=== PATIENT | female | born 1950 | race Caucasian/White ===

== ENCOUNTER 2017-10-25 10:06 | Outpatient (CLI) | payer MEDICARE | END 2017-10-25 10:07 | disposition home or self-care (01) | LOC: BICMAMMO 10:06 | PROVIDERS: ATTEND Family Medicine | DX: Z12.31 Encounter for screening mammogram for malignant neoplasm of breast (principal) | CPT/HCPCS: 77063 ==

== ENCOUNTER 2018-10-30 10:17 | Outpatient (CLI) | payer MEDICARE | END 2018-10-30 10:18 | disposition home or self-care (01) | LOC: BICMAMMO 10:17 | PROVIDERS: ATTEND Family Medicine | DX: Z12.31 Encounter for screening mammogram for malignant neoplasm of breast (principal); R92.1 Mammographic calcification found on diagnostic imaging of breast | CPT/HCPCS: 77063; 77067 ==

== ENCOUNTER 2018-11-04 09:22 | Outpatient (CLI) | payer MEDICARE, OTHER ==
--- NOTE | 2018-11-04 11:19 | RAD ---
LUMBAR SPINE FOUR VIEWS: History: Low back pain. Comparison: 03-22-17 FINDINGS: Five lumbar type vertebrae. Lumbar vertebrae maintain height. There is a grade I anterolisthesis of L 4-5 which appears stable from the prior exam. This does not appear to significantly change with flexi on or extension. There is mild loss of disc space at L4-5 and L5-S1 which appears stable. There is facet hypertrophy. Minimal osteophytes from the lumbar vertebrae. More prominent osteophytes in the lower thoracic verte brae. IMPRESSION: Mild degenerative changes of the lumbar spine as described. Anterolisthesis of L4-5 again noted. POS: [facility]
--- NOTE | 2018-11-04 12:20 | MRI ---
MRI LUMBAR SPINE WITHOUT CONTRAST: Date: 11/04/18 INDICATION: Lumbar radiculopathy with chronic low back pain, worsening. Patient is also having radiating pain rhett n both legs into heels, but worse on the left. COMPARISON: Prior MRI of the lumbar spine dated 04/11/17. FINDINGS: The visualized retroperitoneum and paravertebral soft tissues appear within normal limits. Grade I an terolisthesis of L4 on L5 is stable. At L5-S1, there is severe left and moderate right facet joint degenerative change, which is stable. T here is a mild broad based bulge. There is no appreciable central canal or neural foraminal narrowing . At L4-5, there is advanced facet joint degenerative change, broad based disc bulge, and Grade I anter olisthesis inducing moderate to severe central canal narrowing which has progressed from the prior ex amination. Loss of disc space height in addition to the listhesis causes mild neural foraminal encroa chment without definite impingement. At L3-4, there is a broad based bulge with moderate facet joint degenerative change inducing mild justin tral canal narrowing, which is stable. There is mild neural foraminal encroachment that is greater on the right, which is stable. At L2-3, there is a mild broad based disc bulge with mild facet joint degenerative change, but no shelly reciable central canal or neural foraminal narrowing. At L1-2, there is a new central cephalad extending disc extrusion measuring 1.6 x 2.0 cm in its great est mediolateral and craniocaudad dimensions respectively. This causes mild effacement of the ventral subarachnoid space without definite conus impingement. No definite nerve root impingement is evident . No neural foraminal narrowing is evident. At T12-L1, there is a mild broad based bulge and mild facet joint degenerative change with no appreci able central canal or neural foraminal narrowing. At T11-T12, there is mild facet joint degenerative change and broad based bulge without appreciable c entral canal or neural foraminal narrowing. At T10-T11, there is a mild broad based bulge causing mild effacement of the subarachnoid space witho ut definite cord compression. No neural foraminal narrowing is evident. IMPRESSION: 1. Worsening moderate to severe central canal narrowing at L4-5. Stable mild bilateral neural forami nal narrowing. 2. Stable bilateral neural foraminal narrowing at L3-4. 3. Interval development of a central cephalad extending disc extrusion causing mild ventral effaceme nt of the subarachnoid space without evidence of conus or nerve root contact. POS: [facility]
== END 2018-11-04 09:23 | disposition home or self-care (01) ==
LOC: TBSIIMAG 09:22
PROVIDERS: ATTEND Surgery
DX: M47.26 Other spondylosis with radiculopathy, lumbar region (principal); M43.16 Spondylolisthesis, lumbar region
CPT/HCPCS: 72120; 72148

== ENCOUNTER 2019-01-14 07:19 | Outpatient (CLI) | payer MEDICARE, BC ==
[2019-01-14 11:52] LABS: Mean Corpuscular HGB CONC 32.8 g/dL (32.0-36.0); Mean Corpuscular Hemoglobin 30.6 pg (27.0-31.0); Mean Corpuscular Volume 93.3 fL (78.0-98.0); Mean Platelet Volume 7.7 fL (7.4-10.4); Platelet Count 292 thou/uL (130-400); RBC Distribution Width 11.7 % (11.5-14.5); Red Blood Cell (RBC) Count 4.57 mill/uL (4.20-5.40)
[2019-01-14 11:59] LABS: PTT 29.4 SEC (22.9-36.1)
[2019-01-14 12:23] LABS: Anion Gap 13 mmol/L (10-20); BUN (Urea Nitrogen) 39 mg/dL (9.8-20.1); Calc. Creatinine Clearance 0 mL/min (70-130); Calcium 10.6 mg/dL (7.8-10.44); Carbon Dioxide 28 mmol/L (23-31); Chloride 105 mmol/L (98-107); Estimated GFR-MDRD 71; Glucose 80 mg/dL (80-115); Potassium 3.8 mmol/L (3.5-5.1); Sodium 142 mmol/L (136-145)
== END 2019-01-14 07:20 | disposition home or self-care (01) ==
LOC: LABBT 07:19
PROVIDERS: ATTEND Surgery
DX: Z01.818 Encounter for other preprocedural examination (principal); M54.16 Radiculopathy, lumbar region; M48.061 Spinal stenosis, lumbar region without neurogenic claudication
CPT/HCPCS: 80048; 85027; 85610; 85730; 93005; 93010

== ENCOUNTER → 2019-01-21 | Day surgery (SDC) | payer MEDICARE, BC ==
[~2019-01-21] MED LIST: Bacitracin Zinc Ointment 30 gm TUBE ONE; Bisacodyl 10 MG SUPP PR PRN; Dexamethasone 20 MG/5 ML VIAL ONE; Fentanyl 100 MCG/2 ML VIAL ONE; Fleet Enema 133 ML BOT PR PRN; Glycopyrrolate 0.2 MG/ML 5 ML SYRINGE ONE; HYDROcodone/Acetaminophen 7.5/325 mg Tablet PO PRN; Ketamine 50 MG/ML (10ML VIAL) ONE; Ketorolac Tromethamine 30 MG/ML VIAL IVP PRN; Ketorolac Tromethamine 30 MG/ML VIAL IVP SCH; Lidocaine 1% PF 5 ML VIAL ONE; Mag-Al 1200 mg/1200 mg/30 ML UDCUP PO PRN; Midazolam HCl 2 mg/2 ml Vial ONE; Milk Of Magnesia 30 ML UDCUP PO PRN; Morphine 2 MG/ML SYRINGE ONE; Morphine 2 MG/ML SYRINGE SLOW IVP PRN; Morphine 4 MG/ML VIAL ONE; Morphine 4 MG/ML VIAL SLOW IVP PRN; Ondansetron HCl/PF 4 MG/2 ML Vial IVP PRN; Ondansetron PF 4 MG/2 ML Vial ONE; PACU-Morphine 4MG/ML VIAL SLOW IVP PRN; PHENYLEPHRINE-NS 100 MCG/ML 10 ML SYRINGE ONE; PROPOFOL 200 MG/20 ML VIAL ONE; Promethazine HCl 25 MG/ML VIAL IM PRN; Promethazine HCl 25 MG/ML VIAL ONE; Promethazine HCl 25 MG/ML VIAL SLOW IVP PRN; Rocuronium Bromide 10 MG/ML (10ML VIAL) ONE; Sodium Chloride 0.9% 10 ML ONE; Thrombin 5000 UNITS/5 ML VIAL ONE; ePHEDrine 50 MG/ML VIAL ONE
[2019-01-21 17:08] VITALS: BMI 25.3
[2019-01-21] MEDS: diphenhydrAMINE 25 MG CAP PO PRN (17:25)
[2019-01-21] MEDS: CEFAZOLIN 2 GM in Premix Bag 1 BAG IVPB SCH (17:25)
[2019-01-21] MEDS: Sodium Chloride 0.9% 1,000 ML IV SCH (17:25)
[2019-01-21] MEDS: tiZANidine HCl 4 MG TAB PO PRN (18:42)
[2019-01-21] MEDS: Acetaminophen 325 MG TAB PO PRN (22:11)
[2019-01-21] MEDS: traMADol HCl 50 MG TAB PO PRN (22:11)
[2019-01-21] MEDS: Ondansetron PF 4 MG/2 ML Vial IVP PRN (22:45)
[2019-01-22] MEDS: Acetaminophen/Codeine 30-300mg Tablet PO PRN ×3 (01:27→09:06)
[2019-01-22] MEDS: tiZANidine HCl 4 MG TAB PO PRN ×3 (01:27→21:04)
[2019-01-22] MEDS: CEFAZOLIN 2 GM in Premix Bag 1 BAG IVPB SCH (01:28)
[2019-01-22] MEDS: Sodium Chloride 0.9% 1,000 ML IV SCH ×2 (05:45→15:27)
[2019-01-22] MEDS: Losartan 25 MG TAB PO SCH (08:23)
[2019-01-22] MEDS: Multivit, Therapeutic 1 TAB PO SCH (08:23)
[2019-01-22] MEDS: Chlorthalidone 25 MG TAB PO SCH (08:23)
--- NOTE | 2019-01-22 09:21 | PRG ---
DATE OF SERVICE: 01/22/2019 SUBJECTIVE: Ms. Morrow is postoperative day #1 from L3-S1 laminectomy. She has had resolution in her leg pain. She has significant incisional pain. We will work on control in that regard. Anticipate dismissal perhaps later today or maybe even one more day to get her pain under control. Job ID: [id number]
--- NOTE | 2019-01-22 09:33 | OP ---
DATE OF PROCEDURE: 01/21/2019 ASSISTANT DIRECTOR OF ADMISSIONS: Ammon Hernandez PA-C. PREPROCEDURE DIAGNOSIS: Lumbar stenosis with low back and leg pain. POSTPROCEDURE DIAGNOSIS: Lumbar stenosis with low back and leg pain. PROCEDURES PERFORMED: L3-L4, L4-L5, and L5-S1 laminectomies, partial facetectomies, and foraminotomies. DESCRIPTION OF PROCEDURE: After informed consent was obtained from the patient, the patient was brought to the OR. Proper patient, pause, and identification were carried out. She was placed under excellent general endotracheal anesthesia and positioned prone on the OR table. All appropriate points were padded. We identified the midline lynne, and this was made over the L3-S1 segments and the dorsal back or over the back and this area was sterilely cleansed, prepared, and draped. Proper patient, pause, and identification were again carried out. The wound was then opened with a combination of sharp, monopolar, and blunt dissection, and the L3, L4, L5, and S1 dorsal spines and lamina were exposed. Localization film confirmed area of interest. We then performed L3, L4, L5, and S1 laminectomies, partial facetectomies, and foraminotomies with excellent decompression of the common dural tube and nerve roots. Copious irrigation occurred throughout as did maximizing hemostasis. The wound was then closed in anatomic layers following sprinkling of vancomycin powder and maximizing hemostasis. The patient was then emerged from anesthesia. Job ID: [id number]
[2019-01-22] MEDS: Ondansetron PF 4 MG/2 ML Vial IVP PRN (11:55)
[2019-01-22] MEDS: Acetaminophen 325 MG TAB PO PRN (15:25)
[2019-01-22] MEDS: diphenhydrAMINE 25 MG CAP PO PRN (18:27)
[2019-01-22] MEDS: traMADol HCl 50 MG TAB PO PRN (21:03)
[2019-01-23] MEDS: Sodium Chloride 0.9% 1,000 ML IV SCH ×2 (01:21→08:25)
[2019-01-23] MEDS: traMADol HCl 50 MG TAB PO PRN (03:41)
[2019-01-23] MEDS: Ondansetron PF 4 MG/2 ML Vial IVP PRN ×2 (05:57→12:39)
[2019-01-23] MEDS: Multivit, Therapeutic 1 TAB PO SCH (08:19)
[2019-01-23] MEDS: Chlorthalidone 25 MG TAB PO SCH (08:21)
[2019-01-23] MEDS: Losartan 25 MG TAB PO SCH (08:21)
--- NOTE | 2019-01-23 10:52 | PRG ---
DATE OF SERVICE: 01/23/2019 SUBJECTIVE: Ms. Morrow is postoperative day #2 from lumbar decompression. She has improvement in her leg pain. We are working on control of her back pain. She has headache as well. I anticipate dismissal later today. Job ID: [id number]
[2019-01-23 11:34] VITALS: BP 117/70; TEMP 99.2
== END ==
LOC: SDC 08:51 → SURG A 16:57
PROVIDERS: ATTEND Surgery
PROC: 01NB0ZZ Release Lumbar Nerve, Open Approach (ICD-10-PCS; principal; 2019-01-21)
DX: M48.061 Spinal stenosis, lumbar region without neurogenic claudication (principal); Z88.5 Allergy status to narcotic agent; Z88.8 Allergy status to other drugs, medicaments and biological substances; Z79.82 Long term (current) use of aspirin; Z79.899 Other long term (current) drug therapy
CPT/HCPCS: 76000; J1885; J2250; J2270; J2405; J2550; J3010; J3370; J3490; Q0163

== ENCOUNTER 2019-11-20 10:29 | Outpatient (CLI) | payer MEDICARE, BC ==
--- NOTE | 2019-11-20 11:16 | MMO ---
Bilateral MAMMO Bilat Screen [facility]. CLINICAL HISTORY: Patient is 69 years old and is seen for screening. The patient has no family history of breast cancer. The patient has no personal history of cancer. The patient has a history of bilateral Implants in October,. VIEWS: The views performed were: bilateral craniocaudal with tomosynthesis and bilateral mediolateral oblique with tomosynthesis. FILMS COMPARED: The present examination has been compared to prior imaging studies performed at [facility] on 05/26/2015, 10/06/2016, 10/25/2017 and 10/30/2018. This study has been interpreted with the assistance of computer-aided detection. MAMMOGRAM FINDINGS: There are scattered fibroglandular densities. Finding 1: There are stable benign appearing calcifications seen in both breasts. Finding 2: Normal implants are present. There are no suspicious masses, suspicious calcifications, or new areas of architectural distortion. IMPRESSION: THERE IS NO MAMMOGRAPHIC EVIDENCE OF MALIGNANCY. A ROUTINE FOLLOW-UP MAMMOGRAM IN 1 YEAR IS RECOMMENDED. THE RESULTS OF THIS EXAM WERE SENT TO THE PATIENT. ACR BI-RADS Category 2 - Benign finding MAMMOGRAPHY NOTE: 1. A negative mammogram report should not delay a biopsy if a dominant of clinically suspicious mass is present. 2. Approximately 10% to 15% of breast cancers are not detected by mammography. 3. Adenosis and dense breasts may obscure an underlying neoplasm. Reported by: QUINTIN TAYLOR MD Electonically Signed: [id number]
== END 2019-11-20 10:30 | disposition home or self-care (01) ==
LOC: BICMAMMO 10:29
PROVIDERS: ATTEND Family Medicine
DX: Z12.31 Encounter for screening mammogram for malignant neoplasm of breast (principal); Z98.82 Breast implant status
CPT/HCPCS: 77063; 77067

== ENCOUNTER 2020-11-22 14:33 | Outpatient (CLI) | payer MEDICARE, BC ==
--- NOTE | 2020-11-22 15:38 | MMO ---
Bilateral MAMMO Bilat Screen [facility]. CLINICAL HISTORY: Patient is 70 years old and is seen for screening. The patient has no family history of breast cancer. The patient has no personal history of cancer. The patient has a history of bilateral Implants in October,. VIEWS: The views performed were: bilateral craniocaudal; bilateral craniocaudal with tomosynthesis; bilateral mediolateral oblique; bilateral mediolateral oblique with tomosynthesis; and bilateral Implant displaced with tomosynthesis. FILMS COMPARED: The present examination has been compared to prior imaging studies performed at [facility] on 10/06/2016, 10/25/2017, 10/30/2018 and 11/20/2019. This study has been interpreted with the assistance of computer-aided detection. MAMMOGRAM FINDINGS: There are scattered fibroglandular densities. Normal implants are present. There are no suspicious masses, suspicious calcifications, or new areas of architectural distortion. IMPRESSION: THERE IS NO MAMMOGRAPHIC EVIDENCE OF MALIGNANCY. A ROUTINE FOLLOW-UP MAMMOGRAM IN 1 YEAR IS RECOMMENDED. THE RESULTS OF THIS EXAM WERE SENT TO THE PATIENT. ACR BI-RADS Category 2 - Benign finding MAMMOGRAPHY NOTE: 1. A negative mammogram report should not delay a biopsy if a dominant of clinically suspicious mass is present. 2. Approximately 10% to 15% of breast cancers are not detected by mammography. 3. Adenosis and dense breasts may obscure an underlying neoplasm. Reported by: AMANDA PUGA MD Electonically Signed: [id number]
== END 2020-11-22 14:34 | disposition home or self-care (01) ==
LOC: BICMAMMO 14:33
PROVIDERS: ATTEND Family Medicine
DX: Z12.31 Encounter for screening mammogram for malignant neoplasm of breast (principal); Z98.82 Breast implant status
CPT/HCPCS: 77063; 77067

== ENCOUNTER 2021-11-24 10:23 | Outpatient (CLI) | payer MEDICARE, BC | END 2021-11-24 10:24 | disposition home or self-care (01) | LOC: BICMAMMO 10:23 | PROVIDERS: ATTEND Family Medicine | DX: Z12.31 Encounter for screening mammogram for malignant neoplasm of breast (principal); Z85.51 Personal history of malignant neoplasm of bladder; Z98.82 Breast implant status | CPT/HCPCS: 77063; 77067 ==

== ENCOUNTER 2022-03-31 08:27 | Outpatient (CLI) | payer MEDICARE, BC | END 2022-03-31 08:28 | disposition home or self-care (01) | LOC: TBSIIMAG 08:27 | PROVIDERS: ATTEND Physician Assistant | DX: M51.16 Intervertebral disc disorders with radiculopathy, lumbar region (principal); M25.552 Pain in left hip; M79.605 Pain in left leg; M43.16 Spondylolisthesis, lumbar region; M47.26 Other spondylosis with radiculopathy, lumbar region; M47.27 Other spondylosis with radiculopathy, lumbosacral region; Z98.890 Other specified postprocedural states | CPT/HCPCS: 72120; 72148 ==

== ENCOUNTER 2022-04-04 13:27 | Outpatient (CLI) | payer MEDICARE, BC | END 2022-04-04 13:28 | disposition home or self-care (01) | LOC: BICRAD 13:27 | PROVIDERS: ATTEND Specialist | DX: M25.552 Pain in left hip (principal) ==

== ENCOUNTER 2022-04-20 12:21 | Outpatient (CLI) | payer MEDICARE, BC | END 2022-04-20 12:22 | disposition home or self-care (01) | LOC: BICMRI 12:21 | PROVIDERS: ATTEND Specialist | DX: M87.052 Idiopathic aseptic necrosis of left femur (principal); M16.12 Unilateral primary osteoarthritis, left hip; M94.252 Chondromalacia, left hip ==

== ENCOUNTER 2022-12-15 10:56 | Outpatient (CLI) | payer MEDICARE, BC | END 2022-12-15 10:57 | disposition home or self-care (01) | LOC: BICMAMMO 10:56 | PROVIDERS: ATTEND Family Medicine | DX: Z12.31 Encounter for screening mammogram for malignant neoplasm of breast (principal); Z85.51 Personal history of malignant neoplasm of bladder; Z98.82 Breast implant status | CPT/HCPCS: 77063; 77067 ==

== ENCOUNTER 2023-10-30 12:28 | Outpatient (CLI) | payer MEDICARE, BC ==
[~2023-10-30 12:28] MED LIST changes: -Bacitracin Zinc Ointment 30 gm TUBE ONE; -Bisacodyl 10 MG SUPP PR PRN; -Dexamethasone 20 MG/5 ML VIAL ONE; -Fentanyl 100 MCG/2 ML VIAL ONE; -Fleet Enema 133 ML BOT PR PRN; -Glycopyrrolate 0.2 MG/ML 5 ML SYRINGE ONE; -HYDROcodone/Acetaminophen 7.5/325 mg Tablet PO PRN; +Iopamidol-370 76% 500 ML MDV (1 ML CHARGE) ONE; -Ketamine 50 MG/ML (10ML VIAL) ONE; -Ketorolac Tromethamine 30 MG/ML VIAL IVP PRN; -Ketorolac Tromethamine 30 MG/ML VIAL IVP SCH; -Lidocaine 1% PF 5 ML VIAL ONE; -Mag-Al 1200 mg/1200 mg/30 ML UDCUP PO PRN; -Midazolam HCl 2 mg/2 ml Vial ONE; -Milk Of Magnesia 30 ML UDCUP PO PRN; -Morphine 2 MG/ML SYRINGE ONE; -Morphine 2 MG/ML SYRINGE SLOW IVP PRN; -Morphine 4 MG/ML VIAL ONE; -Morphine 4 MG/ML VIAL SLOW IVP PRN; -Ondansetron HCl/PF 4 MG/2 ML Vial IVP PRN; -Ondansetron PF 4 MG/2 ML Vial ONE; -PACU-Morphine 4MG/ML VIAL SLOW IVP PRN; -PHENYLEPHRINE-NS 100 MCG/ML 10 ML SYRINGE ONE; -PROPOFOL 200 MG/20 ML VIAL ONE; -Promethazine HCl 25 MG/ML VIAL IM PRN; -Promethazine HCl 25 MG/ML VIAL ONE; -Promethazine HCl 25 MG/ML VIAL SLOW IVP PRN; -Rocuronium Bromide 10 MG/ML (10ML VIAL) ONE; -Sodium Chloride 0.9% 10 ML ONE; -Thrombin 5000 UNITS/5 ML VIAL ONE; -ePHEDrine 50 MG/ML VIAL ONE
== END 2023-10-30 12:29 | disposition home or self-care (01) ==
LOC: BICCT 12:28
PROVIDERS: ATTEND Urology
DX: C67.9 Malignant neoplasm of bladder, unspecified (principal); R35.0 Frequency of micturition; Z87.440 Personal history of urinary (tract) infections; Z80.51 Family history of malignant neoplasm of kidney
CPT/HCPCS: 74178; 82565

== ENCOUNTER 2023-12-25 10:20 | Outpatient (CLI) | payer MEDICARE, BC ==
[2023-12-25 11:43] LABS: Bilirubin Neg (Negative); Blood, Urine Negative (Negative); Clarity Clear (Clear); Glucose, Urine (Dipstick) Normal (Negative); Ketone, Urine Negative (Negative); Leukocyte 500 (Negative); Nitrite Negative (Negative); Protein, Urine (Dipstick) Negative (Neg-Trace); Urobilinogen Normal mg/dL (Less than 2)
[2023-12-25 11:49] LABS: Hematocrit 40.2 % (34.9-44.5); Hemoglobin 13.9 g/dL (12.0-15.5); Mean Corpuscular HGB CONC 34.6 g/dL (32.0-36.0); Mean Corpuscular Hemoglobin 31.6 pg (27.0-33.0); Mean Corpuscular Volume 91.4 fl (81.6-98.3); Mean Platelet Volume 9.9 fl (7.4-10.4); Platelet Count 284 10x3/uL (150-450); RBC Distribution Width 12.8 % (11.5-14.5); White Blood Cell (WBC) Count 6.6 10x3/uL (3.5-10.5)
[2023-12-25 11:53] LABS: Bacteria/HPF None Seen HPF (None Seen); RBC/HPF None Seen HPF (0-3); Squamous Epithelial 0-3 HPF (0-3)
[2023-12-25 11:57] LABS: PTT 27.7 sec (22.0-33.0); Prothrombin Time 10.4 sec (9.5-12.1)
[2023-12-25 11:58] LABS: Anion Gap 12 mmol/L (10-20); BUN (Urea Nitrogen) 25 mg/dL (9.8-20.1); Calc. Creatinine Clearance 0 mL/min (70-130); Calcium 9.9 mg/dL (7.8-10.44); Carbon Dioxide 29 mmol/L (23-31); Chloride 104 mmol/L (98-107); Estimated GFR 73; Glucose 84 mg/dL (83-110); Potassium 3.6 mmol/L (3.5-5.1); Sodium 141 mmol/L (136-145)
== END 2023-12-25 10:21 | disposition home or self-care (01) ==
LOC: LABBT 10:20
PROVIDERS: ATTEND Urology
DX: Z01.818 Encounter for other preprocedural examination (principal); C67.9 Malignant neoplasm of bladder, unspecified; N20.0 Calculus of kidney; R35.0 Frequency of micturition; Z87.440 Personal history of urinary (tract) infections; Z80.51 Family history of malignant neoplasm of kidney
CPT/HCPCS: 80048; 81001; 85027; 85610; 85730; 86850; 86900; 86901; 87086; 93005; 93010

== ENCOUNTER 2024-01-02 05:58 | Day surgery (SDC) | payer MEDICARE, BC ==
[2023-12-31 14:04] VITALS: BMI 25.0
[2024-01-02] MEDS ORDERED: Midazolam HCl 2 mg/2 ml Vial ONE (07:36)
[2024-01-02] MEDS ORDERED: fentaNYL PF 100 MCG/2 ML SYRINGE ONE (07:58)
[2024-01-02] MEDS ORDERED: Lidocaine 2% PF 5 ML VIAL ONE (07:58)
[2024-01-02] MEDS ORDERED: PROPOFOL 20 ML ONE (07:58)
[2024-01-02] MEDS ORDERED: LevoFLOXacin D5W 500 mg (100 mL) BAG ONE (08:03)
[2024-01-02] MEDS ORDERED: Dexamethasone 4 mg/ml Vial ONE (08:21)
[2024-01-02] MEDS ORDERED: Ondansetron PF 4 MG/2 ML Vial ONE (08:21)
[2024-01-02] MEDS ORDERED: ePHEDrine/0.9% NaCl/PF SYRINGE 50 mg/10 ml ONE (08:50)
[2024-01-02] MEDS ORDERED: Phenazopyridine HCl 100 MG TAB ONE (09:29)
[2024-01-02] MEDS ORDERED: Oxybutynin 5 MG TAB ONE (09:29)
== END 2024-01-02 11:44 | disposition home or self-care (01) ==
LOC: SDC 05:58
PROVIDERS: ATTEND Urology
PROC: 0TBB8ZX Excision of Bladder, Via Natural or Artificial Opening Endoscopic, Diagnostic (ICD-10-PCS; principal; 2024-01-02)
DX: N30.91 Cystitis, unspecified with hematuria (principal); C67.9 Malignant neoplasm of bladder, unspecified; R35.0 Frequency of micturition; N20.0 Calculus of kidney; I10 Essential (primary) hypertension; Z90.710 Acquired absence of both cervix and uterus; Z80.51 Family history of malignant neoplasm of kidney; Z88.5 Allergy status to narcotic agent; Z88.8 Allergy status to other drugs, medicaments and biological substances; Z79.899 Other long term (current) drug therapy
CPT/HCPCS: 86850; 86900; 86901; 88305; J1100; J1956; J2001; J2250; J2405; J2704

== ENCOUNTER 2024-12-31 08:06 | Outpatient (CLI) | payer MEDICARE ==
[2024-12-31] MEDS ORDERED: Iopamidol 370 76% 100 ML VIAL ONE (09:38)
== END 2024-12-31 08:07 | disposition home or self-care (01) ==
LOC: BICCT 08:06
PROVIDERS: ATTEND Urology
DX: C67.9 Malignant neoplasm of bladder, unspecified (principal); R35.0 Frequency of micturition; N20.0 Calculus of kidney; Z80.51 Family history of malignant neoplasm of kidney; Z87.440 Personal history of urinary (tract) infections
CPT/HCPCS: 74177